=== PATIENT | male | born 2000 | race Caucasian/White ===

== ENCOUNTER 2024-06-29 20:50 | Emergency (ER) | payer MEDICAID, SELFPAY ==
[2024-06-29 20:52] VITALS: BP 128/111; PULSE 110; PULSE 78; RESP 24; TEMP 36.8; O2SAT 98
--- NOTE | 2024-06-29 20:55 | PC.NURSE ---
[employer] officer Shikha at bedside
--- NOTE | 2024-06-29 21:02 | EDNOTE_ITS ---
ED General RME/HPI General Chief complaint: General Adult/Misc Complain Stated complaint: OD Time Seen by Provider: 06/29/24 21:02 Arrival date/time: 06/29/24 20:50 RME / HPI RME / HPI narrative: 23-year-old male patient was brought in by law enforcement for possible fentanyl overdose. Patient also verbalized taking naltrexone 1 tablet 50 mg to make him high. Patient was found unconscious, while in the restroom, after having a large bowel movement. Patient was given Narcan 4 mg intranasal, with complete reversal of consciousness. When the EMS arrived patient is already alert and oriented x 4, currently patient is alert oriented x 4, denies any complaints. Related Data Home Medications ?Medication ?Instructions ?Recorded ?Confirmed clonazepam 0.5 mg tablet (Klonopin) 0.5 mg PO BID 08/30/18 12/15/18 aripiprazole 10 mg tablet (Abilify) 10 mg PO QDAY 12/15/18 12/15/18 fluoxetine 20 mg capsule (Prozac) 20 mg PO QDAY 12/15/18 12/15/18 Allergies Allergy/AdvReac Type Severity Reaction Status Date / Time Penicillins Allergy Verified 11/02/22 16:42 Review of Systems Review of Systems Narrative Review of Systems: Review of system reviewed and within normal limits except mentioned in HPI ED Exam Narrative Physical exam: VITAL SIGNS: Reviewed. GENERAL APPEARANCE: Alert and interactive, follows commands, no acute distress, HEAD AND FACE: Non-traumatic. ENT: PERRL, pink conjunctivitis, eyelid no trauma, Mucous membrane moist. NECK: Supple, nontender, no nuchal rigidity. CHEST: No tenderness, no crepitus, no paradoxical movement, no retractions. LUNGS: Clear, well ventilated, symmetric, no rales, no wheezing, no ronchi, no stridor, good breath sounds bilaterally. HEART: Regular rate, regular rhythm, no murmur, no gallops. ABDOMEN: Soft, positive bowel sounds, nondistended, no guarding, nontender, no rebound, no masses, RECTAL: Deferred. GENITAL: Deferred. NEUROLOGICAL: Gross motor function intact sensory function intact, Appropriate for age. MUSCULOSKELETAL: low back nontender, full range of motion. EXTREMITIES: Nontender, full range of motion. SKIN: Color pink, dry, no rash, no lacerations, no abrasions, no contusions. LYMPHATICS: Deferred. Course Quality Measures none Orders Category Date Time Status CBC [CBC] Stat Lab 06/29/24 21:49 Completed CMP [Comprehensive Metabolic Panel] Stat Lab 06/29/24 21:49 Completed Metoclopramide Inj [Reglan Inj] Med 06/29/24 21:48 Discontinued 10 mg IVP X1 ONE Metoclopramide Inj [Reglan Inj] Med 06/30/24 04:20 Discontinued 10 mg IVP X1 ONE Ondansetron Inj [Zofran Inj] Med 06/29/24 21:16 Discontinued 4 mg IV X1 ONE Ondansetron Inj [Zofran Inj] Med 06/30/24 04:20 Discontinued 4 mg IV X1 ONE Sodium Chloride 0.9% 1000 ml [Ns] 1,000 ml Med 06/29/24 21:08 Discontinued IV 999 mls/hr Vital Signs Vital signs: Vital Signs Temperature 98.3 F 06/29/24 20:52 Pulse Rate 78 06/29/24 20:52 Respiratory Rate 24 H 06/29/24 20:52 Blood Pressure 128/111 H 06/29/24 20:52 Pulse Oximetry (%) 98 06/29/24 20:52 Oxygen Delivery Method Room Air 06/29/24 20:52 [facility] Patient data External records reviewed:: None Clinical information provided by:: patient Social determinants that could affect healthcare access:: substance use Patient has the following chronic illnesses:: None How is presenting disease/condition affected by chronic disease/condition?: e xacerbated by Evaluation data The following diagnostics were reviewed and interpreted by me:: lab results Lab and/or radiology exams considered but not ordered:: None Interpretation Summary: EKG showed sinus rhythm, ventricular rate of 95 bpm, LA interval 133 MS, no ST segment elevation depression noted. Patient potassium was noted to be 3.2. Rest of labs unremarkable except for leukocytosis of 23,000 which is secondary to vomiting. Medications Medications considered but not ordered:: None Medication administrations:: Medication Administration History Discontinued Medications Sodium Chloride (Ns) 1,000 mls @ 999 mls/hr IV .Q1H1M ONE Stop: 06/29/24 22:08 Last Infusion: 06/29/24 22:49 Dose: Infused Documented By: Admin: 06/29/24 21:14 Dose: 999 mls/hr Documented By: SF Metoclopramide HCl (Metoclopramide Inj 5 Mg/Ml Vial 2 Ml) 10 mg IVP X1 ONE; Protocol Stop: 06/29/24 21:49 Last Admin: 06/29/24 22:12 Dose: 10 mg Documented By: TAMIKO Metoclopramide HCl (Metoclopramide Inj 5 Mg/Ml Vial 2 Ml) 10 mg IVP X1 ONE; Protocol Stop: 06/30/24 04:21 Last Admin: 06/30/24 04:40 Dose: 10 mg Documented By: LILY Ondansetron HCl (Ondansetron Inj 2 Mg/Ml Inj 2 Ml) 4 mg IV X1 ONE; Protocol Stop: 06/29/24 21:17 Last Admin: 06/29/24 21:36 Dose: 4 mg Documented By: REBECCA Ondansetron HCl (Ondansetron Inj 2 Mg/Ml Inj 2 Ml) 4 mg IV X1 ONE; Protocol Stop: 06/30/24 04:21 Last Admin: 06/30/24 04:40 Dose: 4 mg Documented By: LILY Zofran, Reglan, IV fluids for hydration Consultations Consultation(s) initiated? (list below): No Diagnosis Differential Diagnosis ED Complaint MDM: Opioid overdose, dehydration, vomiting Most likely diagnosis given after review of the tests above:: Opiate overdose Admission Indicated Admission indicated?: not indicated Explain why admission is indicated or not indicated:: Stable Admission Request Was there a request for admission?: No Disposition Plan Disposition Plan: Discharge Discharge Attestation Discharge Attestation: The patient and all family members were given an opportunity to ask questions and understood the discharge instructions. Discharge instructions specifically effects, indications for sooner follow up or return to the emergency department, and the expected course of current diagnosis. Patient condition: Stable Medical Decision Making MDM Narrative MDM Narrative: 23-year-old male patient was brought in by law enforcement for possible fentanyl overdose. Patient also verbalized taking naltrexone 1 tablet 50 mg to make him high. Patient was found unconscious, while in the restroom, after having a large bowel movement. Patient was given Narcan 4 mg intranasal, with complete reversal of consciousness. When the EMS arrived patient is already alert and oriented x 4, currently patient is alert oriented x 4, denies any complaints. Patient continued to have vomiting in the emergency room. Patient was given IV fluids, IV Reglan IV Zosyn, with significant progress symptoms. Patient sleep for several hours, workup okay and ready to go home. Differential Diagnosis Differential Diagnosis: Opioid overdose, dehydration, vomiting Lab Data 06/29/24 21:49 06/29/24 21:49 Labs: Lab Results 06/29/24 Range/Units 21:49 WBC 23.9 H (3.8-10.6) Thou/mm3 RBC 4.80 (4.50-5.90) Miln/mm3 Hgb 14.6 (13.5-16.0) g/dL Hct 42.3 (41.0-53.0) % MCV 88 (80-100) fL MCH 30.4 (25.0-35.0) pg MCHC 34.5 (31.0-37.0) g/dl RDW Std Deviation 40.4 (35.1-43.9) fL Plt Count 266 (140-440) Thou/mm3 Neut % (Auto) 80 (37-80) % Lymph % (Auto) 11 (10-50) % Grady % (Auto) 7 (0-12) % Eos % (Auto) 1 (0-10) % Baso % (Auto) 1 (0-2.5) % Neut # (Auto) 19.1 H (1.8-7.7) Thou/mm3 Lymph # (Auto) 2.7 (1.0-4.8) Thou/mm3 Grady # (Auto) 1.7 H (0.0-0.8) Thou/mm3 Eos # (Auto) 0.1 (0.0-0.5) Thou/mm3 Baso # (Auto) 0.1 (0.0-0.2) Thou/mm3 Immature Gran # (Auto) 0.13 H (0.00-0.00) Thou/mm3 Absolute Nucleated RBC 0.00 (0.00-0.00) Thou/mm3 Immature Gran % 1 H (0-0) % Nucleated RBC % 0 (0) /100 WBC Sodium 139 (136-145) mMol/L Potassium 3.2 L (3.4-5.1) mMol/L Chloride 100 (98-107) mMol/L Carbon Dioxide 28.0 (20.0-31.0) mMol/L Anion Gap 11 (7-16) BUN 14 (9-23) mg/dL Creatinine 1.0 (0.6-1.3) mg/dL Estim Creat Clear Calc Not Performed. eGFR > 60 (60 - ) See Note BUN/Creatinine Ratio 14 (12-20) Ratio Glucose 150 H (74-106) mg/dL Calculated Osmolality 281 (275-295) Calcium 10.4 (8.3-10.6) mg/dL Corrected Calcium 10.4 H (8.5-10.1) mg/dL Total Bilirubin 0.3 (0.3-1.2) mg/dL AST 17 (0-34) U/L ALT 15 (10-49) U/L Alkaline Phosphatase 82 (46-116) U/L Total Protein 8.0 (5.7-8.2) gm/dL Albumin 5.2 H (3.5-5.0) gm/dL Globulin 2.8 (2.3-3.5) gm/dL Albumin/Globulin Ratio 1.9 (1.2-2.2) Discharge Plan Plan Patient Disposition: HOME (Self Care) Disposition Comment: Stable Prescriptions/Referrals Prescriptions/Med Rec: No Action clonazepam [Klonopin] 0.5 mg Tablet 0.5 mg PO BID fluoxetine [Prozac] 20 mg Capsule 20 mg PO QDAY aripiprazole [Abilify] 10 mg Tablet 10 mg PO QDAY Referrals: Pete Gee MD [Primary Care Provider] - In 1 week Problem List Clinical Impression: Opioid overdose Patient/Caregiver Discharge Instructions Discharge Activity: activity as tolerated Education Materials: ED Overdose, Opiate Additional Instructions: Thank you for the opportunity for serving you today. You are stable for discharged . You are advised to: Follow-up with your PCP in 1 to 2 days Return to ED for worsening of symptoms Increase oral fluids Please stop abusing fentanyl, will eventually kill you Print Language: Tajik Stand Alone Forms: Chanel Award Info., Patient Portal Info Letter [facility] Supervising Physician AR[facility] Supervising Physician: MD Morena
--- NOTE | 2024-06-29 21:02 | PC.NURSE ---
Pt brought in by ambulance for ingestion of Naltrexone 50mg and fentanyl. 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 Pt denies SI and HI. When fire arrived pt was only responsive to pain, so narcan 4mg was given. Pt is alert and oriented at this time.
[2024-06-29] MEDS: SODIUM CHLORIDE 0.9% 1000 ML 1,000 ML 999 ML IV (21:14)
--- NOTE | 2024-06-29 21:15 | PC.NURSE ---
Pt's mom update, with his permission
[2024-06-29] MEDS: ONDANSETRON INJ 2 MG/ML INJ 2 ML 4 MG IV (21:36)
[2024-06-29 22:08] LABS: Basophils # (Auto) 0.1 Thou/mm3 (0.0-0.2); Basophils % (Auto) 1 % (0-2.5); Eosinophils # (Auto) 0.1 Thou/mm3 (0.0-0.5); Eosinophils % (Auto) 1 % (0-10); Hematocrit 42.3 % (41.0-53.0); Hemoglobin 14.6 g/dL (13.5-16.0); Immature Granulocytes % (Auto) 1 % (0-0); Immature Granulocytes Auto 0.13 Thou/mm3 (0.00-0.00); Lymphocytes # (Auto) 2.7 Thou/mm3 (1.0-4.8); Lymphocytes % (Auto) 11 % (10-50); Mean Corpuscular HGB Conc 34.5 g/dl (31.0-37.0); Mean Corpuscular Hemoglobin 30.4 pg (25.0-35.0); Mean Corpuscular Volume 88 fL (80-100); Monocytes # (Auto) 1.7 Thou/mm3 (0.0-0.8); Monocytes % (Auto) 7 % (0-12); Neutrophils # (Auto) 19.1 Thou/mm3 (1.8-7.7); Neutrophils % (Auto) 80 % (37-80); Nucleated Red Blood Cell % 0 /100 WBC (0); Platelet Count 266 Thou/mm3 (140-440); RDW Standard Deviation 40.4 fL (35.1-43.9); White Blood Count 23.9 Thou/mm3 (3.8-10.6)
[2024-06-29] MEDS: METOCLOPRAMIDE INJ 5 MG/ML VIAL 2 ML 10 MG IVP (22:12)
[2024-06-29 22:20] LABS: Alanine Aminotransferase 15 U/L (10-49); Albumin, Serum 5.2 gm/dL (3.5-5.0); Albumin/Globulin Ratio 1.9 (1.2-2.2); Alkaline Phosphatase 82 U/L (46-116); Anion Gap 11 (7-16); Aspartate Amino Transferase 17 U/L (0-34); BUN/Creatinine Ratio 14 Ratio (12-20); Bilirubin,Total 0.3 mg/dL (0.3-1.2); Blood Urea Nitrogen 14 mg/dL (9-23); Calcium 10.4 mg/dL (8.3-10.6); Calcium (Corrected) 10.4 mg/dL (8.5-10.1); Chloride 100 mMol/L (98-107); Globulin 2.8 gm/dL (2.3-3.5); Glucose 150 mg/dL (74-106); Osmolality,Calculated 281 (275-295); Potassium 3.2 mMol/L (3.4-5.1); Sodium 139 mMol/L (136-145); eGFR > 60 See Note
[2024-06-29 23:07] VITALS: BP 143/56; PULSE 75; RESP 22; O2SAT 98
[2024-06-30 01:03] VITALS: BP 127/78; PULSE 102; RESP 17; O2SAT 98
--- NOTE | 2024-06-30 02:33 | PC.NURSE ---
Pt resting at this time, will be discharged when he is awake
--- NOTE | 2024-06-30 03:34 | PC.NURSE ---
Pt is agreeable to go home with his brother Pramod, will contact brother when patient is more awake
[2024-06-30 04:20] VITALS: BP 135/64; PULSE 83; RESP 18; TEMP 37.9; O2SAT 98
[2024-06-30] MEDS: ONDANSETRON INJ 2 MG/ML INJ 2 ML 4 MG IV (04:40)
[2024-06-30] MEDS: METOCLOPRAMIDE INJ 5 MG/ML VIAL 2 ML 10 MG IVP (04:40)
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
== END 2024-06-30 05:07 | disposition home or self-care (01) ==
PROVIDERS: Nurse Practitioner Family; Emergency Provider Emergency Medicine; PCP Family Medicine
DX: T40.2X1A Poisoning by other opioids, accidental (unintentional), initial encounter (principal); D72.829 Elevated white blood cell count, unspecified; R11.10 Vomiting, unspecified
CPT/HCPCS: 36415; 80053; 80307; 85025; 96361; 96374; 96375; 96376; 99284; J2405; J2765; J7030